=== PATIENT | male | born 1970 | race Two or more races ===

== ENCOUNTER 2021-12-02 20:38 | Emergency (ER) | payer OTHER ==
[~2021-12-02] VITALS: Ht 180.3 cm; Wt 86.2 kg
== END 2021-12-02 23:47 | disposition home or self-care (01) ==
LOC: ER 20:38
DX: S43.084A Other dislocation of right shoulder joint, initial encounter (principal); X58.XXXA Exposure to other specified factors, initial encounter; Y93.89 Activity, other specified; Y92.89 Other specified places as the place of occurrence of the external cause